=== PATIENT | female | born 1995 | race Caucasian/White ===

== ENCOUNTER 2018-10-02 10:41 | Emergency (ER) | payer SELFPAY ==
--- NOTE | 2018-10-02 10:55 | ER Document Report ---
ED Medical Screen (RME) - General Chief Complaint: Abdominal Pain Stated Complaint: OVARIAN CYST Time Seen by Provider: 10/02/18 10:49 TRAVEL OUTSIDE OF THE [place] IN LAST 30 DAYS: No - HPI Notes: 10/02/18 10:52 Patient is a 22-year-old female with a history of ovarian cyst who presents complaining of lower pelvic pain R>L and having an episode of nausea and vomiting this morning. Patient states that the pain is been ongoing for the last couple days, but she cannot take NSAIDs at home because of ulcerative colitis. Patient states that she originally has been seen for this issue in [place]. She is currently on her menstrual cycle. She otherwise is urinating normally and having normal bowel movements. Denies GARCIA, fever, neck pain, URI, CP, SOB, or rash. I have treated and performed a rapid initial assessment of this patient. A comprehensive ED assessment and evaluation of the patient, analysis of test results and completion of medical decision making process will be conducted by additional ED providers. PHYSICAL EXAMINATION: GENERAL: Well-appearing, well-nourished and in no acute resp distress. A&Ox4. Answers questions appropriately. LUNGS: Breath sounds clear to auscultation bilaterally and equal. No wheezes rales or rhonchi. HEART: Regular rate and rhythm without murmurs, rubs, gallops. ABDOMEN: Soft, nondistended abdomen. Normal bowel sounds present. ? + CVA tenderness bilaterally. + lower abd/pelv tenderness (cannot elicit thorough abd exam w/o table, however). Pt seems to be hypersensitive to palp/light touch to her back as well when checking CVA tenderness. Extremities: No cyanosis, clubbing, or edema b/l. NEUROLOGICAL: Normal speech, normal gait. PSYCH: Normal mood, normal affect. - Related Data Allergies/Adverse Reactions: infliximab [From Remicade] Allergy (Verified 10/02/18 10:42) morphine Allergy (Verified 10/02/18 10:42) NSAIDS (Non-Steroidal Anti-Inflamma Allergy (Verified 10/02/18 10:42) Physical Exam - Vital signs Vitals: Temp Pulse Resp BP Pulse Ox 97.8 F 99 22 H 150/99 H 99 10/02/18 10:46 10/02/18 10:46 10/02/18 10:46 10/02/18 10:46 10/02/18 10:46 Course - Vital Signs Vital signs: Temp Pulse Resp BP Pulse Ox 97.8 F 99 22 H 150/99 H 99 10/02/18 10:46 10/02/18 10:46 10/02/18 10:46 10/02/18 10:46 10/02/18 10:46
[2018-10-02] MEDS ORDERED: FENTANYL CITRATE INJ/PF 100 MCG/2 ML AMPUL IM ONE (11:29)
--- NOTE | 2018-10-02 11:32 | ER Document Report ---
ED GI/ - General Chief Complaint: Abdominal Pain Stated Complaint: OVARIAN CYST Time Seen by Provider: 10/02/18 10:49 Mode of Arrival: Ambulatory Information source: Patient Notes: Patient is an otherwise healthy 22-year-old female presented to the emergency department with lower abdominal pain. Patient reports history of ovarian cyst, states she has had them since she was 16. Patient denies any abnormal vaginal discharge and denies any pelvic pain. Patient denies any nausea, vomiting or diarrhea. Patient reports she is currently on her menstrual cycle. Patient does have history of ulcerative colitis, migraines and ovarian cyst. She is allergic to Remicade, NSAIDs and morphine. TRAVEL OUTSIDE OF THE [place] IN LAST 30 DAYS: No - Related Data Allergies/Adverse Reactions: infliximab [From Remicade] Allergy (Verified 10/02/18 10:42) morphine Allergy (Verified 10/02/18 10:42) NSAIDS (Non-Steroidal Anti-Inflamma Allergy (Verified 10/02/18 10:42) Past Medical History - General Information source: Patient - Social History Smoking Status: Former Smoker Chew tobacco use (# tins/day): No Frequency of alcohol use: Occasional Drug Abuse: None Family History: Reviewed & Not Pertinent Patient has suicidal ideation: No Patient has homicidal ideation: No Neurological Medical History: Reports: Hx Migraine Renal/ Medical History: Denies: Hx Peritoneal Dialysis Review of Systems - Review of Systems Constitutional: No symptoms reported EENT: No symptoms reported Cardiovascular: No symptoms reported Respiratory: No symptoms reported Gastrointestinal: Abdominal pain - Low abdominal cramping Genitourinary: No symptoms reported Female Genitourinary: No symptoms reported Musculoskeletal: No symptoms reported Skin: No symptoms reported Hematologic/Lymphatic: No symptoms reported Neurological/Psychological: No symptoms reported Physical Exam - Vital signs Vitals: Temp Pulse Resp BP Pulse Ox 97.8 F 99 22 H 150/99 H 99 10/02/18 10:46 10/02/18 10:46 10/02/18 10:46 10/02/18 10:46 10/02/18 10:46 - Notes Notes: PHYSICAL EXAMINATION: GENERAL: Well-appearing, well-nourished and in no acute distress. HEAD: Atraumatic, normocephalic. EYES: Pupils equal round and reactive to light, extraocular movements intact, conjunctiva are normal. ENT: Nares patent, oropharynx clear without exudates. Moist mucous membranes. NECK: Normal range of motion, supple without lymphadenopathy LUNGS: Breath sounds clear to auscultation bilaterally and equal. No wheezes rales or rhonchi. HEART: Regular rate and rhythm without murmurs ABDOMEN: Soft, nontender, nondistended abdomen. No guarding, no rebound. No masses appreciated. Female : Right CVA tenderness. Patient refused pelvic exam. Musculoskeletal: Normal range of motion, no pitting or edema. No cyanosis. NEUROLOGICAL: Cranial nerves grossly intact. Normal speech, normal gait. Normal sensory, motor exams PSYCH: Normal mood, normal affect. SKIN: Warm, Dry, normal turgor, no rashes or lesions noted. Course - Re-evaluation Re-evalutation: Patient appears well, afebrile and nontoxic. Urinalysis pending. Patient refused pelvic exam stating that she knows she has an ovarian cyst. Patient will be given pain medication and sent down for transvaginal ultrasound. Patient adamantly denies any pelvic pain or abnormal vaginal discharge so the pelvic will not be completed. CBC, CMP and urinalysis are unremarkable. Transvaginal ultrasound shows no ovarian cysts. No explanation for patient's low abdominal pain. Patient continues to decline pelvic exam. Extensive discussion was had with patient regarding other pathologies that may cause her low abdominal pain to include PID and appendicitis. At this time patient's abdomen is soft and nontender, no right lower quadrant pain, guarding or rebound. Patient declines any further testing at this time. We did extensively discuss ED return precautions as outlined in her discharge papers including appendicitis return precautions. Patient is agreeable to same and verbalizes understanding. - Vital Signs Vital signs: Temp Pulse Resp BP Pulse Ox 98 F 88 16 140/78 H 98 10/02/18 14:29 10/02/18 14:29 10/02/18 14:29 10/02/18 14:29 10/02/18 14:29 - Laboratory Result Diagrams: 10/02/18 11:15 10/02/18 11:15 Laboratory results interpreted by me: 10/02/18 10/02/18 11:15 11:15 Chloride 108 H AST 74 H ALT 53 H Urine Ketones TRACE H Urine Blood MODERATE H Discharge - Discharge Clinical Impression: Abdominal pain Qualifiers: Abdominal location: generalized Qualified Code(s): R10.84 - Generalized abdominal pain Condition: Stable Disposition: HOME, SELF-CARE Instructions: Observation for Appendicitis ([facility]) Additional Instructions: Please follow the appendicitis return precautions as outlined in your discharge papers. Take Tylenol every 4 hours for pain. Use the nausea medication as prescribed for nausea. Return to the emergency department for any new or worsening symptoms. Prescriptions: Ondansetron [Zofran Odt 4 mg Tablet] 1 - 2 tab PO Q4H PRN #15 tab.rapdis PRN Reason: For Nausea/Vomiting
[2018-10-02 11:40] LABS: ABSOLUTE EOSINOPHILS # (AUTO) 0.1 10^3/uL (0.0-0.6); ABSOLUTE MONOCYTES (AUTO) 0.7 10^3/uL (0.1-1.4); ABSOLUTE NEUT (AUTO) 4.5 10^3/uL (1.7-8.2); BASOPHILS % (AUTO) 0.4 % (0-2); EOSINOPHILS % (AUTO) 1.2 % (0-6); HEMATOCRIT 42.5 % (36.0-47.0); HEMOGLOBIN 14.4 g/dL (12.0-15.5); LYMPHOCYTES % (AUTO) 27.4 % (13-45); MEAN CORPUSCULAR HEMOGLOBIN 30.7 pg (27.0-33.4); MEAN CORPUSCULAR HGB CONC 33.9 g/dL (32.0-36.0); MEAN CORPUSCULAR VOLUME 90 fl (80-97); MONOCYTES % (AUTO) 8.9 % (3-13); PLATELET COUNT 217 10^3/uL (150-450); RED CELL DISTRIBUTION WIDTH 13.5 % (11.5-14.0); SEGMENTED NEUTROPHILS % (AUTO) 62.1 % (42-78); TOTAL CELLS COUNTED % (AUTO) 100 %; WHITE BLOOD COUNT 7.3 10^3/uL (4.0-10.5)
[2018-10-02 11:52] LABS: APPEARANCE,URINE CLEAR; BILIRUBIN,URINE NEGATIVE (NEGATIVE); COLOR,URINE YELLOW; GLUCOSE, URINE NEGATIVE (NEGATIVE); KETONES,URINE TRACE mg/dL (NEGATIVE); LEUKOCYTE ESTERASE,URINE NEGATIVE (NEGATIVE); NITRITE,URINE NEGATIVE (NEGATIVE); PROTEIN,URINE NEGATIVE (NEGATIVE); URINE SPECIFIC GRAVITY 1.016; UROBILINOGEN,URINE NEGATIVE mg/dL (<2.0)
[2018-10-02 12:01] LABS: ALANINE AMINOTRANSFERASE 53 U/L (9-52); ALKALINE PHOSPHATASE 85 U/L (38-126); ANION GAP 10 (5-19); ASPARTATE AMINO TRANSFERASE 74 U/L (14-36); BILIRUBIN,DIRECT 0.2 mg/dL (0.0-0.4); BILIRUBIN,TOTAL 0.9 mg/dL (0.2-1.3); BLOOD UREA NITROGEN 9 mg/dL (7-20); CALCIUM 9.8 mg/dL (8.4-10.2); CARBON DIOXIDE 25 mmol/L (22-30); CHLORIDE 108 mmol/L (98-107); GLUCOSE 94 mg/dL (75-110); POTASSIUM 4.3 mmol/L (3.6-5.0); SODIUM 142.6 mmol/L (137-145); TOTAL PROTEIN 6.9 g/dL (6.3-8.2)
--- NOTE | 2018-10-02 12:50 | RADIOLOGY REPORT (SQ) ---
EXAM DESCRIPTION: U/S NON OB PEL TV W/DOPPLER COMPLETED DATE/TIME: 10/02/2018 12:28 pm REASON FOR STUDY: pelvic pain, h/o cysts COMPARISON: None. TECHNIQUE: Dynamic and static grayscale images acquired of the pelvis via transvaginal approach and recorded on PACS. Additional selected color Doppler and spectral images recorded. LIMITATIONS: None. FINDINGS: UTERUS: Contour normal. No mass. ENDOMETRIAL STRIPE: No focal or generalized thickening. No masses. CERVIX: No nabothian cysts. RIGHT OVARY AND DOPPLER: Normal size. No worrisome masses. Normal arterial vascular flow without evid ence for torsion. LEFT OVARY AND DOPPLER: Normal size. No worrisome masses. Normal arterial vascular flow without evide nce for torsion. FREE FLUID: None noted. OTHER: No other significant finding. IMPRESSION: NORMAL TRANSVAGINAL PELVIC ULTRASOUND. TECHNICAL DOCUMENTATION: JOB ID: [id number] [employer]- All Rights Reserved Rev-10/08 Reading location - IP/workstation name: [email or web address]
[2018-10-02 14:38] VITALS: BP 140/78
== END 2018-10-02 14:29 | disposition home or self-care (01) ==
LOC: ER 10:41
DX: R10.84 Generalized abdominal pain (principal); Z87.42 Personal history of other diseases of the female genital tract; Z87.19 Personal history of other diseases of the digestive system; Z87.891 Personal history of nicotine dependence; Z88.8 Allergy status to other drugs, medicaments and biological substances; Z88.5 Allergy status to narcotic agent
CPT/HCPCS: 99284; 96372; 36415; 85025; 81025; 80053; 81001; 76830; 93976; J3010

== ENCOUNTER 2019-03-05 16:26 | Emergency (ER) | payer SELFPAY ==
[2019-03-05 16:36] VITALS: BP 137/95
[2019-03-05] MEDS ORDERED: DIPH/PERTUSS(ACELL)/TETANUS VAC/PF 0.5 ML SYR (>=10YO) IM ONE (16:36)
--- NOTE | 2019-03-05 16:40 | ER Document Report ---
HPI - HPI Time Seen by Provider: 03/05/19 16:36 Pain Level: 4 Notes: Patient is a 23-year-old female with history of ulcerative colitis who presents complaining of left ankle/foot pain status post injury yesterday more than 24 hours ago. Patient states that she was drinking alcohol and tripped and injured her foot. Patient states that she also cut the underside of her great toe which she superglued. Unknown last tetanus. She is otherwise able to ambulate, but d oes have some discomfort in doing so. No fever. Denies any headache, fever, head injury, neck pain, URI, sore throat, chest pain, palpitations, syncope, cough, shortness of breath, wheeze, dyspnea, abdominal pain, nausea/vomiting/diarrhea, urinary retention, dysuria, hematuria, loss of control of bowel or bladder, numbness/tingling, saddle anesthesia, muscle paralysis/weakness, or rash. - ROS Systems Reviewed and Negative: Yes All other systems reviewed and negative - REPRODUCTIVE Reproductive: DENIES: : Past Medical History - Social History Smoking Status: Current Every Day Smoker Chew tobacco use (# tins/day): No Frequency of alcohol use: Social Drug Abuse: None Family History: Reviewed & Not Pertinent Patient has suicidal ideation: No Patient has homicidal ideation: No Neurological Medical History: Reports: Hx Migraine Renal/ Medical History: Denies: Hx Peritoneal Dialysis Vertical Provider Document - CONSTITUTIONAL Agree With Documented VS: Yes Notes: PHYSICAL EXAMINATION: GENERAL: Well-appearing, well-nourished and in no acute distress. LUNGS: Breath sounds clear to auscultation bilaterally and equal. No wheezes rales or rhonchi. HEART: Regular rate and rhythm without murmurs, rubs, gallops. Musculoskeletal: Lt foot/ankle: No ecchymosis, swelling, or deformity. FROM to passive/active dorsiflexion. Strength 5+/5. N/V intact distal. + tenderness to the medial malleolus and lateral foot. Achilles intact. Lis Franc maneuver neg. Anterior drawer neg. + flap-lac superficial to the plantar great toe without active bleeding. approx 2cm in total length. Extremities: No cyanosis, clubbing, or edema b/l. Peripheral pulses 2+. Capillary refill less than 3 seconds. NEUROLOGICAL: Normal speech, limping gait. Normal sensory, motor exams PSYCH: Normal mood, normal affect. SKIN: see above - INFECTION CONTROL TRAVEL OUTSIDE OF THE [place] IN LAST 30 DAYS: No Course - Re-evaluation Re-evalutation: 03/05/19 17:22 Patient is an afebrile, well-hydrated, 23-year-old female who presents to the ED with left foot/ankle pain which I suspect to be a sprain versus strain with an older laceration warranting healing by 2ndary intent (steri-strips were placed after thorough cleansing). Vitals are acceptable without any significant tachycardia, tachypnea, or hypoxia. PE is otherwise unremarkable for any neurovascular compromise, obvious tendon/ligament rupture, obvious fracture/dislocation, septic joint. X-rays unremarkable for any acute pathology. Crutches were provided today. Tylenol given PO. Patient is nontoxic-appearing. Patient is able to ambulate and weight-bear although she is limping. Tdap updated today. No other labs or imaging warranted at this time based on H&P. Conservative measures otherwise for symptoms. Recheck with your PCM in 3-5 days. Consider consult orthopedics. Return to the ED with any worsening/concerning symptoms otherwise as reviewed in discharge. Patient is in agreement. - Vital Signs Vital signs: Temp Pulse Resp BP Pulse Ox 98.6 F 92 137/95 H 97 03/05/19 16:33 03/05/19 16:33 03/05/19 16:33 03/05/19 16:33 Discharge - Discharge Clinical Impression: Left foot pain Left ankle pain Qualifiers: Chronicity: acute Qualified Code(s): M25.572 - Pain in left ankle and joints of left foot Laceration of left great toe Qualifiers: Encounter type: initial encounter Damage to nail status: without damage Foreign body presence: without foreign body Qualified Code(s): S91.112A - Laceration without foreign body of left great toe without damage to nail, initial encounter Condition: Stable Disposition: HOME, SELF-CARE Instructions: Soap Cleansing ([facility]) Additional Instructions: Rest, Ice, Compression, Elevation Keep the skin clean and wash with soap/water Triple antibiotic ointment for the first few days Tylenol/ibuprofen as needed Light stretches daily Strength exercises as able Moist heat and massage may help F/u with your PCP in 3-5 days for a recheck Consider consult(s) with Orthopedics/physical therapy for ongoing/worsening symptoms Return to the ED with any worsening symptoms and/or development of fever, headache, chest pain, palpitations, syncope, shortness of breath, trouble breathing, abdominal pain, n/v/d, muscle weakness/paralysis, numbness/tingling, swelling, redness, or other worsening symptoms that are concerning to you. Prescriptions: Cephalexin Monohydrate [Keflex 500 mg Capsule] 500 mg PO TID #21 capsule Forms: Elevated Blood Pressure, Smoking Cessation Education Referrals: [facility] [Provider Group] - Follow up as needed
--- NOTE | 2019-03-05 17:12 | RADIOLOGY REPORT (SQ) ---
EXAM DESCRIPTION: FOOT LEFT COMPLETE COMPLETED DATE/TIME: 03/05/2019 4:59 pm REASON FOR STUDY: pain s/p injury COMPARISON: None. NUMBER OF VIEWS: Three views. TECHNIQUE: AP, lateral and oblique radiographic images acquired of the left foot. LIMITATIONS: None. FINDINGS: MINERALIZATION: Normal. BONES: No acute fracture or dislocation. No worrisome bone lesions. JOINTS: No effusions. SOFT TISSUES: No soft tissue swelling. No foreign body. OTHER: No other significant finding. IMPRESSION: NEGATIVE STUDY OF THE LEFT FOOT. NO RADIOGRAPHIC EVIDENCE OF ACUTE INJURY. TECHNICAL DOCUMENTATION: JOB ID: [id number] [employer]- All Rights Reserved Reading location - IP/workstation name: [email or web address]
--- NOTE | 2019-03-05 17:12 | RADIOLOGY REPORT (SQ) ---
EXAM DESCRIPTION: ANKLE LEFT COMPLETE COMPLETED DATE/TIME: 03/05/2019 4:59 pm REASON FOR STUDY: pain s/p injury COMPARISON: None. NUMBER OF VIEWS: Three views. TECHNIQUE: AP, lateral, and oblique radiographic images acquired of the left ankle. LIMITATIONS: None. FINDINGS: MINERALIZATION: Normal. BONES: No acute fracture or dislocation. No worrisome bone lesions. JOINTS: No effusions. SOFT TISSUES: No soft tissue swelling. No foreign body. OTHER: No other significant finding. IMPRESSION: NEGATIVE STUDY OF THE LEFT ANKLE. NO RADIOGRAPHIC EVIDENCE OF ACUTE INJURY. TECHNICAL DOCUMENTATION: JOB ID: [id number] [employer]- All Rights Reserved Reading location - IP/workstation name: [email or web address]
[2019-03-05] MEDS ORDERED: ACETAMINOPHEN 325 MG TABLET PO ONE (17:23)
== END 2019-03-05 17:32 | disposition home or self-care (01) ==
LOC: ER 16:26
DX: S91.112A Laceration without foreign body of left great toe without damage to nail, initial encounter (principal); M25.572 Pain in left ankle and joints of left foot; X58.XXXA Exposure to other specified factors, initial encounter; F17.200 Nicotine dependence, unspecified, uncomplicated
CPT/HCPCS: 90471; 90715; 99283

== ENCOUNTER 2019-03-24 18:18 | Emergency (ER) | payer SELFPAY ==
--- NOTE | 2019-03-24 18:47 | ER Document Report ---
ED Medical Screen (RME) - General Chief Complaint: Bloody Stools Stated Complaint: ABDOMINAL PAIN/BLOOD IN STOOL Time Seen by Provider: 03/24/19 18:43 Mode of Arrival: Wheelchair Information source: Patient Notes: 23-year-old female presented to ED for abdominal pain and rectal bleeding. She does have a history of ulcerative colitis. Last time she was hospitalized for this was 3 to 4 years ago. She has been hospitalized in 2012 also. She states she does not have health insurance and is not on any medications for her ulcerative colitis at this time. She was on Entyvio when she had insurance. Last menstrual cycle was March 17, 2019. She states she had a drinks alcohol every couple weeks and smokes when she drinks. She states she does not use any illicit drugs. She states the last time she had a blood transfusion for the ulcerative colitis was in 2011. I have greeted and performed a rapid initial assessment of this patient. A comprehensive ED assessment and evaluation of the patient, analysis of test results and completion of medical decision making process will be conducted by an additional ED providers. TRAVEL OUTSIDE OF THE [place] IN LAST 30 DAYS: No - Related Data Allergies/Adverse Reactions: infliximab [From Remicade] Allergy (Verified 03/05/19 16:34) morphine Allergy (Verified 03/05/19 16:34) NSAIDS (Non-Steroidal Anti-Inflamma Allergy (Verified 03/05/19 16:34) Past Medical History Neurological Medical History: Reports: Hx Migraine Renal/ Medical History: Denies: Hx Peritoneal Dialysis Physical Exam - Vital signs Vitals: Temp Pulse Resp BP Pulse Ox 98.2 F 92 13 149/101 H 99 03/24/19 18:24 03/24/19 18:24 03/24/19 18:24 03/24/19 18:24 03/24/19 18:24 Course - Vital Signs Vital signs: Temp Pulse Resp BP Pulse Ox 98.2 F 92 13 149/101 H 99 03/24/19 18:24 03/24/19 18:24 03/24/19 18:24 03/24/19 18:24 03/24/19 18:24
[2019-03-24 20:16] LABS: ABSOLUTE BASOPHILS # (AUTO) 0.1 10^3/uL (0.0-0.2); ABSOLUTE EOSINOPHILS # (AUTO) 0.1 10^3/uL (0.0-0.6); ABSOLUTE LYMPHOCYTES (AUTO) 1.6 10^3/uL (0.5-4.7); ABSOLUTE MONOCYTES (AUTO) 0.4 10^3/uL (0.1-1.4); ABSOLUTE NEUT (AUTO) 5.6 10^3/uL (1.7-8.2); BASOPHILS % (AUTO) 0.8 % (0-2); EOSINOPHILS % (AUTO) 1.5 % (0-6); HEMATOCRIT 41.7 % (36.0-47.0); HEMOGLOBIN 14.4 g/dL (12.0-15.5); MEAN CORPUSCULAR HEMOGLOBIN 31.5 pg (27.0-33.4); MEAN CORPUSCULAR HGB CONC 34.5 g/dL (32.0-36.0); MEAN CORPUSCULAR VOLUME 91 fl (80-97); MONOCYTES % (AUTO) 5.7 % (3-13); PLATELET COUNT 266 10^3/uL (150-450); RED BLOOD COUNT 4.58 10^6/uL (3.72-5.28); TOTAL CELLS COUNTED % (AUTO) 100 %; WHITE BLOOD COUNT 7.8 10^3/uL (4.0-10.5)
[2019-03-24 20:23] LABS: APPEARANCE,URINE SLIGHTLY-CLOUDY; BILIRUBIN,URINE NEGATIVE (NEGATIVE); COLOR,URINE YELLOW; GLUCOSE, URINE NEGATIVE (NEGATIVE); KETONES,URINE NEGATIVE (NEGATIVE); PROTEIN,URINE NEGATIVE (NEGATIVE); URINE SPECIFIC GRAVITY 1.025
[2019-03-24 20:29] LABS: ALBUMIN 4.3 g/dL (3.5-5.0); ALKALINE PHOSPHATASE 85 U/L (38-126); ANION GAP 7 (5-19); ASPARTATE AMINO TRANSFERASE 23 U/L (14-36); BILIRUBIN,DIRECT 0.1 mg/dL (0.0-0.4); BILIRUBIN,TOTAL 0.5 mg/dL (0.2-1.3); BLOOD UREA NITROGEN 11 mg/dL (7-20); CALCIUM 9.4 mg/dL (8.4-10.2); CARBON DIOXIDE 26 mmol/L (22-30); CHLORIDE 106 mmol/L (98-107); GLUCOSE 93 mg/dL (75-110); POTASSIUM 4.5 mmol/L (3.6-5.0); TOTAL PROTEIN 7.2 g/dL (6.3-8.2)
[2019-03-24] MEDS ORDERED: FENTANYL CITRATE INJ/PF 100 MCG/2 ML AMPUL IV ONE (22:57)
[2019-03-24] MEDS ORDERED: ONDANSETRON HCL INJ/PF 4 MG/2 ML SDV IV ONE (22:57)
[2019-03-24] MEDS ORDERED: METHYLPREDNISOLONE INJ 125 MG/2 ML SDV IV ONE (22:57)
[2019-03-24] MEDS ORDERED: CEPHALEXIN 500 MG CAPSULE PO ONE (23:01)
--- NOTE | 2019-03-24 23:05 | ER Document Report ---
ED General - General Chief Complaint: GI Bleeding Stated Complaint: ABDOMINAL PAIN/BLOOD IN STOOL Time Seen by Provider: 03/24/19 18:43 Mode of Arrival: Wheelchair TRAVEL OUTSIDE OF THE [place] IN LAST 30 DAYS: No - HPI Notes: Patient is a 23-year-old female with a history of ulcerative colitis who presents emergency department for evaluation of generalized abdominal pain, blood in her stool. She states that her stools have been more frequent over the last week. She noticed some dark blood in there today. She has intermittent cramping abdominal pain, had one episode of emesis today. She states all this is typical of her ulcerative colitis. She is to be controlled on Entyvio, but no longer has insurance. She is not seeing a junior architect at this time. - Related Data Allergies/Adverse Reactions: infliximab [From Remicade] Allergy (Verified 03/05/19 16:34) morphine Allergy (Verified 03/05/19 16:34) NSAIDS (Non-Steroidal Anti-Inflamma Allergy (Verified 03/05/19 16:34) Past Medical History - General Information source: Patient - Social History Smoking Status: Current Some Day Smoker Chew tobacco use (# tins/day): No Frequency of alcohol use: Occasional Drug Abuse: None Family History: Reviewed & Not Pertinent Patient has suicidal ideation: No Patient has homicidal ideation: No Pulmonary Medical History: Reports: Hx Asthma Neurological Medical History: Reports: Hx Migraine Renal/ Medical History: Reports: Hx Ovarian Cysts. Denies: Hx Peritoneal Dialysis GI Medical History: Reports: Other - Ulcerative colitis Review of Systems - Review of Systems Constitutional: No symptoms reported EENT: No symptoms reported Cardiovascular: No symptoms reported Respiratory: No symptoms reported Gastrointestinal: See HPI Genitourinary: No symptoms reported Musculoskeletal: No symptoms reported Skin: No symptoms reported Neurological/Psychological: No symptoms reported Physical Exam - Vital signs Vitals: Temp Pulse Resp BP Pulse Ox 98.2 F 92 13 149/101 H 99 03/24/19 18:24 03/24/19 18:24 03/24/19 18:24 03/24/19 18:24 03/24/19 18:24 - Notes Notes: Vital signs reviewed, please refer to chart. Head is normocephalic, atraumatic. Pupils equal round, reactive to light. Neck is supple without meningismus. Heart is regular rate and rhythm. Lungs are clear to auscultation bilaterally. Abdomen is soft, diffusely tender without rebound or guarding, normoactive bowel sounds throughout. Extremities without cyanosis, clubbing. Posterior calves are nontender. Peripheral pulses are equal. Skin is warm and dry. Patient is awake, alert, neurological exam is nonfocal. Course - Re-evaluation Re-evalutation: 03/24/19 23:04 Patient is a 23-year-old female with a history of ulcerative colitis who presents emergency department for evaluation of rectal bleeding and abdominal pain. Her vital signs are unremarkable. Her belly exam is diffusely tender but benign. Her laboratory investigations revealed a stable hemoglobin. It was further noted that the patient does have a nitrite positive urine specimen. She was given Keflex, fentanyl, Zofran, Solu-Medrol. I will send her home with this steroid taper, small amount of pain and nausea medication, and an antibiotic prescription for UTI. She is encouraged to follow-up with primary care/gastroenterology. She is to return to the emergency department with worsening or new concerning symptoms of any sort. 03/25/19 00:06 Patient feeling stable, improved. We will send her home as discussed. Return to the ED with worsening. - Vital Signs Vital signs: Temp Pulse Resp BP Pulse Ox 98.2 F 92 13 138/99 H 99 03/24/19 18:24 03/24/19 18:24 03/24/19 18:24 03/24/19 18:49 03/24/19 18:24 - Laboratory Result Diagrams: 03/24/19 19:25 03/24/19 19:25 Laboratory results interpreted by me: 03/24/19 19:25 Urine Blood SMALL H Urine Nitrite (Reflex) POSITIVE H Urine Urobilinogen 4.0 H Leukocyte Esterase Rfl TRACE H Discharge - Discharge Clinical Impression: Generalized abdominal pain Ulcerative colitis, acute Qualifiers: Digestive disease complication type: with rectal bleeding Qualified Code(s): K51.911 - Ulcerative colitis, unspecified with rectal bleeding Urinary tract infection Qualifiers: Urinary tract infection type: site unspecified Hematuria presence: without hematuria Qualified Code(s): N39.0 - Urinary tract infection, site not specified Condition: Stable Disposition: HOME, SELF-CARE Instructions: Abdominal Pain ([facility]), Cephalexin ([facility]), Urinary Tract Infection ([facility]) Additional Instructions: Take all the antibiotic as prescribed until gone. Zofran and [place] as needed for nausea and pain, respectively. Follow-up with primary care next week. You should consider establishing care with gastroenterology as well. Take all the prednisone as directed. Return to the ED with worsening or new concerning sympt oms of any sort. Prescriptions: Prednisone [Deltasone 20 mg Tablet] See Protocol PO DAILY 5 Days #20 tablet Cephalexin Monohydrate [Keflex 500 mg Capsule] 500 mg PO QID #20 capsule
[2019-03-25] MEDS ORDERED: ONDANSETRON ODT 4 MG TAB (6 TAB/ER DISP) PO PRN (00:06)
[2019-03-25] MEDS ORDERED: HYDROCODONE/ACETAMINOPHEN 5-325 MG (6 TAB/ER DISP) PO PRN (00:07)
[2019-03-25 01:15] VITALS: BP 128/85
== END 2019-03-25 01:09 | disposition home or self-care (01) ==
LOC: ER 18:18
DX: K51.911 Ulcerative colitis, unspecified with rectal bleeding (principal); N39.0 Urinary tract infection, site not specified; R10.84 Generalized abdominal pain; R10.817 Generalized abdominal tenderness; R11.10 Vomiting, unspecified; F17.200 Nicotine dependence, unspecified, uncomplicated; J45.909 Unspecified asthma, uncomplicated; Z88.8 Allergy status to other drugs, medicaments and biological substances; Z88.5 Allergy status to narcotic agent; Z87.42 Personal history of other diseases of the female genital tract
CPT/HCPCS: 86900; 86901; 36415; 87086; 86850; 83690; 84703; 85025; 87088; 80053; 81001; 87186; J3010; J2930; J2405; 96374; 96375; 99284

== ENCOUNTER 2019-04-16 14:19 | Emergency (ER) | payer SELFPAY ==
--- NOTE | 2019-04-16 14:28 | ER Document Report ---
ED Medical Screen (RME) - General Chief Complaint: Suicidal Ideation Stated Complaint: SUICIDAL IDEATION Time Seen by Provider: 04/16/19 14:21 Mode of Arrival: Ambulatory Information source: Patient Notes: Patient is a 23-year-old female with past medical history of bipolar, depression and anxiety not taking any medications presenting with suicidal ideations. Patient reports multiple life stressors over the last several months of made her have suicidal thoughts, and she denies any specific plan. Denies any homicidal ideation. Patient does have multiple superficial lacerations to her left upper arm that do not require closure. Patient does report a history of cutting, states the last time she cut prior to today was at least 1 year ago. Patient is calm, cooperative, very tearful, states that she wants help. Patient reports that she does not have any medical insurance which is the reason she is not taking any medications and does not have any mental health set up. I have greeted and performed a rapid initial assessment of this patient. A comprehensive ED assessment and evaluation of the patient, analysis of test results and completion of the medical decision making process will be conducted by additional ED providers. I have specifically instructed the patient or family members with the patient to immediately return to any nursing staff should anything change in the patient's condition or with their chief complaint. This medical record was dictated with voice recognizing software. There may be grammatical, syntax errors that are unintended. TRAVEL OUTSIDE OF THE [place] IN LAST 30 DAYS: No - Related Data Allergies/Adverse Reactions: infliximab [From Remicade] Allergy (Verified 03/05/19 16:34) morphine Allergy (Verified 03/05/19 16:34) NSAIDS (Non-Steroidal Anti-Inflamma Allergy (Verified 03/05/19 16:34) Past Medical History Pulmonary Medical History: Reports: Hx Asthma Neurological Medical History: Reports: Hx Migraine Renal/ Medical History: Reports: Hx Ovarian Cysts. Denies: Hx Peritoneal Dialysis Physical Exam - Vital signs Vitals: Temp Pulse Resp BP Pulse Ox 98.3 F 123 H 20 143/95 H 98 04/16/19 14:22 04/16/19 14:22 04/16/19 14:22 04/16/19 14:22 04/16/19 14:22 Course - Vital Signs Vital signs: Temp Pulse Resp BP Pulse Ox 98.3 F 123 H 20 143/95 H 98 04/16/19 14:22 04/16/19 14:22 04/16/19 14:22 04/16/19 14:22 04/16/19 14:22
[2019-04-16 15:18] LABS: APPEARANCE,URINE SLIGHTLY-CLOUDY; BILIRUBIN,URINE NEGATIVE (NEGATIVE); COLOR,URINE YELLOW; GLUCOSE, URINE NEGATIVE (NEGATIVE); KETONES,URINE NEGATIVE (NEGATIVE); LEUKOCYTE ESTERASE,URINE LARGE (NEGATIVE); NITRITE,URINE NEGATIVE (NEGATIVE); PROTEIN,URINE NEGATIVE (NEGATIVE); URINE SPECIFIC GRAVITY 1.011; UROBILINOGEN,URINE NEGATIVE mg/dL (<2.0)
[2019-04-16 15:37] LABS: URINE AMPHETAMINES SCREEN NEGATIVE; URINE BARBITURATES SCREEN NEGATIVE; URINE BENZODIAZEPINES SCREEN NEGATIVE; URINE COCAINE SCREEN NEGATIVE; URINE MARIJUANA (THC) SCREEN NEGATIVE; URINE METHADONE SCREEN NEGATIVE; URINE PHENCYCLIDINE SCREEN NEGATIVE
[2019-04-16 15:38] LABS: ALBUMIN 4.1 g/dL (3.5-5.0); ALCOHOL 49 mg/dL (NONE DETECTED); ALKALINE PHOSPHATASE 69 U/L (38-126); ANION GAP 12 (5-19); ASPARTATE AMINO TRANSFERASE 52 U/L (14-36); BILIRUBIN,DIRECT 0.1 mg/dL (0.0-0.4); BILIRUBIN,TOTAL 0.4 mg/dL (0.2-1.3); BLOOD UREA NITROGEN 6 mg/dL (7-20); CALCIUM 9.4 mg/dL (8.4-10.2); CARBON DIOXIDE 23 mmol/L (22-30); CHLORIDE 106 mmol/L (98-107); GLUCOSE 94 mg/dL (75-110); POTASSIUM 3.7 mmol/L (3.6-5.0)
[2019-04-16 15:40] LABS: ACETAMINOPHEN < 10 ug/mL (10-30); SALICYLATE < 1.0 mg/dL (2.0-20.0)
[2019-04-16 15:45] LABS: ABSOLUTE EOSINOPHILS # (AUTO) 0.1 10^3/uL (0.0-0.6); ABSOLUTE LYMPHOCYTES (AUTO) 1.6 10^3/uL (0.5-4.7); ABSOLUTE MONOCYTES (AUTO) 0.5 10^3/uL (0.1-1.4); BASOPHILS % (AUTO) 0.4 % (0-2); EOSINOPHILS % (AUTO) 0.7 % (0-6); HEMATOCRIT 39.2 % (36.0-47.0); HEMOGLOBIN 13.4 g/dL (12.0-15.5); MEAN CORPUSCULAR HEMOGLOBIN 31.3 pg (27.0-33.4); MEAN CORPUSCULAR HGB CONC 34.2 g/dL (32.0-36.0); MEAN CORPUSCULAR VOLUME 92 fl (80-97); MONOCYTES % (AUTO) 6.2 % (3-13); PLATELET COUNT 254 10^3/uL (150-450); RED BLOOD COUNT 4.29 10^6/uL (3.72-5.28); RED CELL DISTRIBUTION WIDTH 13.9 % (11.5-14.0); SEGMENTED NEUTROPHILS % (AUTO) 73.7 % (42-78); TOTAL CELLS COUNTED % (AUTO) 100 %; WHITE BLOOD COUNT 8.2 10^3/uL (4.0-10.5)
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
[2019-04-16] MEDS ORDERED: NITROFURANTOIN MONOHYD/M-CRYST 100 MG CAPSULE PO ONE (16:14)
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
[2019-04-16] MEDS ORDERED: OLANZAPINE 2.5 MG TABLET PO ONE (16:54)
--- NOTE | 2019-04-16 17:05 | EKG REPORT ---
SEVERITY:- NORMAL ECG - SINUS RHYTHM : Confirmed by: Collins Steel MD 16-Apr-2019 17:04:11
[2019-04-16 17:49] VITALS: BP 128/92
== END 2019-04-16 18:09 | disposition home or self-care (01) ==
LOC: ER 14:19
DX: N30.01 Acute cystitis with hematuria (principal); F31.9 Bipolar disorder, unspecified; R45.851 Suicidal ideations; S41.112A Laceration without foreign body of left upper arm, initial encounter; X78.9XXA Intentional self-harm by unspecified sharp object, initial encounter; F17.200 Nicotine dependence, unspecified, uncomplicated; Z88.6 Allergy status to analgesic agent
CPT/HCPCS: 93005; 99285; 36415; 80307 ×4; 85025; 80053; 81001; 93010; J3490; J8499